=== PATIENT | male | born 1970 | race Caucasian/White ===

== ENCOUNTER → 2017-08-14 | Outpatient (CLI) | payer OTHER ==
[~2017-08-14] VITALS: Ht 177.8 cm; Wt 106.1 kg
[~2017-08-14] MED LIST: AMITRIPTYLINE H10 M1 PO; BENTYL 10MG10 MG/CAP PO; CELEBREX 200MG200 MG PO; CLARITIN 1010 MG/TAB PO; CYMBALTA 20MG20 MG PO; DEPAKOTE500 MG PO; LIPITOR20 MG PO; MAXALT10 MG PO; ROBAXIN 50500 MG/TAB PO; ULTRAM 50MG TAB50 MG PO; ZOFRAN8 MG PO
[2017-08-14 11:03] VITALS: BP 120/77; PULSE 76
[2017-08-14 11:55] VITALS: BP 122/73; PULSE 70
[2017-08-14 12:00] VITALS: BP 126/63; PULSE 92
[2017-08-14 12:05] VITALS: BP 121/66; PULSE 80
== END ==
LOC: COL.CARD 10:15
DX: Z01.818 Encounter for other preprocedural examination (principal); R07.9 Chest pain, unspecified
CPT/HCPCS: A9502; J2785

== ENCOUNTER → 2017-08-24 | Outpatient (CLI) | payer OTHER | LOC: COL.VAS 12:25 | DX: R07.89 Other chest pain (principal); R06.09 Other forms of dyspnea ==